=== PATIENT | female | born 1965 | race African-American/Black ===

== ENCOUNTER 2020-05-24 13:54 | Emergency (ER) | payer OTHER ==
[2020-05-24 14:10] VITALS: TEMP 98.2; BMI 43.7
[2020-05-24] MEDS ORDERED: CASIRIVIMAB (REGN10933) 1,200 MG, IMDEVIMAB (REGN10987) 1,200 MG in SODIUM CHLORIDE 250 ML IVPB ONE (14:13)
[2020-05-24 15:02] LABS: HEMATOCRIT 40.3 % (32.4-45.2); HEMOGLOBIN 12.8 GM/dL (10.7-15.3); MCH 22.3 pg (25.7-33.7); MCHC 31.7 g/dl (32.0-36.0); MEAN CELL VOLUME 70.6 fl (80-96); MEAN PLT VOLUME 8.4 fl (7.5-11.1); PLATELET COUNT 261 K/MM3 (134-434); RBC 5.71 M/mm3 (3.60-5.2); RDW 15.5 % (11.6-15.6); WHITE BLOOD COUNT 5.7 K/mm3 (4.0-10.0)
[2020-05-24 15:21] LABS: BLOOD UREA NITROGEN 8.5 mg/dL (7-18); CALCIUM 8.4 mg/dL (8.5-10.1)
[2020-05-24 15:22] LABS: ALBUMIN 3.3 g/dl (3.4-5.0)
[2020-05-24 15:24] LABS: CREATININE 0.9 mg/dL (0.55-1.3)
[2020-05-24 15:26] LABS: BILIRUBIN,TOTAL 0.5 mg/dL (0.2-1)
[2020-05-24 15:34] LABS: POTASSIUM 7.1 mmol/L (3.5-5.1)
[2020-05-24 17:23] VITALS: BP 126/82; PULSE 84
[2020-05-24 18:01] LABS: ALBUMIN 3.3 g/dl (3.4-5.0); CALCIUM 8.4 mg/dL (8.5-10.1)
[2020-05-24 18:02] LABS: BLOOD UREA NITROGEN 7.1 mg/dL (7-18)
[2020-05-24 18:05] LABS: CREATININE 0.8 mg/dL (0.55-1.3)
[2020-05-24 18:06] LABS: BILIRUBIN,TOTAL 0.2 mg/dL (0.2-1); TOT PROT 7.1 g/dl (6.4-8.2)
== END 2020-05-24 18:53 | disposition home or self-care (01) ==
LOC: JCOVINFU 13:54 → JER 13:54 → JCOVINFU 18:53
DX: U07.1 COVID-19 (principal)
CPT/HCPCS: 36415; 80053; 85027; 99284-25; M0243; Q0243